=== PATIENT | male | born 1985 | race Two or more races ===

== ENCOUNTER 2019-06-02 17:49 | Emergency (ER) | payer SELFPAY ==
[~2019-06-02] VITALS: Ht 182.9 cm; Wt 111.0 kg
[2019-06-02] MEDS ORDERED: SODIUM CHLORIDE 0.9% 1,000 ML IV ONE (19:00)
[2019-06-03] MEDS ORDERED: IBUPROFEN 800MG TABLET PO ONE (06:45)
[2019-06-03 07:05] VITALS: BP 131/86
== END 2019-06-03 10:49 | disposition home or self-care (01) ==
LOC: ER 17:49
DX: F10.129 Alcohol abuse with intoxication, unspecified (principal); M79.651 Pain in right thigh; F17.290 Nicotine dependence, other tobacco product, uncomplicated; Y90.9 Presence of alcohol in blood, level not specified
CPT/HCPCS: 70450; 73552; 82962; 99285; 99406; J7030; Z7610